=== PATIENT | male | born 1980 | race Caucasian/White ===

== ENCOUNTER 2021-09-04 13:09 | Emergency (ER) | payer OTHER ==
--- NOTE | 2021-09-04 13:48 | EDM.PDOC ---
ED HPI GENERAL MEDICAL PROBLEM - General Chief Complaint: Lower Extremity Injury/Pain Stated Complaint: right knee injury Time Seen by Provider: 09/04/21 13:20 History Limitations: Reports: No Limitations - History of Present Illness INITIAL COMMENTS - FREE TEXT/NARRATIVE: injury at work on 09/03/21 while pushing a heavy object at 0500. pt heard pop and felt immediate pain in his right knee. 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 Pain is 5/10. does not radiate. located in right medial knee. associated knee swelling. rest makes it better, walking makes it worse. pain is aching and throbbing in character. time of day doesn't change it. has never had this before. Onset: Sudden Onset Date: 09/03/21 Duration: Day(s): Location: Reports: Lower Extremity, Right Quality: Reports: Ache, Pressure Severity: Moderate Improves with: Reports: Immobilization Worsens with: Reports: Movement Context: Reports: Other (work injury) Associated Symptoms: Reports: No Other Symptoms Treatments [employer]: Reports: Acetaminophen, Cold Therapy, Other (see below) (elevation, rest) Right Knee Pain Score (Numeric/FACES): 5 - Related Data Allergies Allergy/AdvReac Type Severity Reaction Status Date / Time No Known Allergies Allergy Verified 09/04/21 13:10 Social & Family History - Family History Family Medical History: No Pertinent Family History - Tobacco Use Tobacco Use Status *Q: Current Every Day Tobacco User Tobacco Use Within Last Twelve Months: Cigarettes Smoking Cessation Information Provided To Patient: Patient Refused Second Hand Smoke Exposure: No - Tobacco Core Measures Tobacco Use/Smoking Within Last 30 Days: Yes Smoking Frequency Within Last 30 Days: Reports: Five or More Cigarettes Per Day Smokeless Tobacco Use in Last 30 Days: No Desires Tobacco Cessation Medication: Refuses FDA Approved Med - Living Situation & Occupation Occupation: Employed Review of Systems - Review of Systems Review Of Systems: See Below Constitutional: Reports: No Symptoms Eyes: Reports: No Symptoms Ears: Reports: No Symptoms Nose: Reports: No Symptoms Mouth/Throat: Reports: No Symptoms Respiratory: Reports: No Symptoms Cardiovascular: Reports: No Symptoms GI/Abdominal: Reports: No Symptoms Genitourinary: Reports: No Symptoms Musculoskeletal: Reports: Joint Pain (right knee) Skin: Reports: No Symptoms Neurological: Reports: No Symptoms Psychiatric: Reports: No Symptoms ED EXAM, GENERAL - Physical Exam Exam: See Below Exam Limited By: No Limitations General Appearance: Alert, WD/WN, No Apparent Distress Ears: Normal External Exam Nose: Normal Inspection Throat/Mouth: Normal Voice, No Airway Compromise Head: Atraumatic, Normocephalic Neck: Normal Inspection, Full Range of Motion Respiratory/Chest: No Respiratory Distress, Lungs Clear, Normal Breath Sounds, No Accessory Muscle Use. No: Rhonchi, Wheezing, Stridor Cardiovascular: Regular Rate, Rhythm, No Edema, Systolic Murmur (2/6) (Male) Exam: Deferred Rectal (Males) Exam: Deferred Back Exam: Full Range of Motion Extremities: Joint Swelling (right knee bursa swollen medially with proximal extensionand laterally as well. pain on palpation of medial patella. negative drawer, negative for varus and valgus stress. can bear weight. ) Neurological: Alert, Oriented Psychiatric: Normal Affect, Normal Mood Skin Exam: Warm, Dry, Intact, Normal Color, No Rash Course - Vital Signs Text/Narrative:: met with patient bedside at 1320. complaints of right knee injury while at work at 0500 on 08/24/21. currently swollen and painful when walking despite rest, ice and elevation. discussed treatment options, negative musc. skeletal exam and possible removal of fluid today. He opted for conservative management with rest, ice, elevation. he wants to avoid needles and prefers OTC medications. Departure - Departure Time of Disposition: 14:03 Disposition: Home, Self-Care 01 Condition: Good Clinical Impression: Patellar bursitis of right knee, Knee pain, right - Discharge Information *PRESCRIPTION DRUG MONITORING PROGRAM REVIEWED*: Not Applicable *COPY OF PRESCRIPTION DRUG MONITORING REPORT IN PATIENT JULIAN: Not Applicable Instructions: Bursitis Additional Instructions: Ice 15 minutes every hour, keep elevated, minimal weight bearing on right. PRN OTC acetaminophen 1000mg three times daily for pain. OTC ibuprofen 800mg twice daily for inflammation. follow up in clinic in 2 days to re-evaluate need for arthrocentesis (removing fluid from joint) and possible need for MRI. - Problem List Review Problem List Initiated/Reviewed/Updated: Yes - Assessment/Plan Assessment:: acute patellar bursitis, right side, initial encounter Knee pain secondary to above - initial conservative management: rest, Ice 15 minutes every hour while awake, elevation - offered arthrocentesis but pt declined - acetaminophen 1000mg tid for pain and ibuprofen 800mg twice daily for inflammation - follow up in clinic in 2 days to re-evaluate need for arthrocentesis and p ossible MRI (physical exam currently shows bursitis and secondary limited ROM)
== END 2021-09-04 14:15 | disposition home or self-care (01) ==
LOC: LL.ED 13:09
DX: M70.51 Other bursitis of knee, right knee (principal); Z72.0 Tobacco use
CPT/HCPCS: 99283